=== PATIENT | male | born 1935 | race Caucasian/White ===

== ENCOUNTER 2017-09-28 13:46 | Inpatient (IN) | payer MEDICARE, BC ==
[~2017-09-28 13:46] MED LIST: ISOVUE-370 76%-LOCM 1 ML ONE
[2017-09-28 14:26] LABS: #Basophils 0.1 thou/uL (0.0-0.2); #Eosinphils 0.1 thou/uL (0.0-0.7); #Lymphocytes 1.1 thou/uL (1.20-3.40); #Monocytes 0.5 thou/uL (0.11-0.59); #Neutrophils 3.2 thou/uL (1.40-6.50); %Basophils 1.4 % (0.0-1.0); %Eosinophils 2.6 % (0.0-10.0); %Lymphocytes 22.4 % (21.0-51.0); %Monocytes 9.2 % (0.0-10.0); %Neutrophils 64.3 % (42.0-75.0); Hemoglobin 12.7 g/dL (14.0-18.0); Mean Corpuscular HGB CONC 34.7 g/dL (32.0-36.0); Mean Corpuscular Hemoglobin 35.5 pg (27.0-31.0); Mean Platelet Volume 6.7 fL (7.4-10.4); Platelet Count 262 thou/uL (130-400); RBC Distribution Width 11.2 % (11.5-14.5); Red Blood Cell (RBC) Count 3.59 mill/uL (4.70-6.10); White Blood Cell (WBC) Count 4.9 thou/uL (4.8-10.8)
--- NOTE | 2017-09-28 14:27 | RAD ---
CHEST ONE VIEW: History: Chest pain. Comparison: 09-29-09 FINDINGS: Cardiac silhouette is magnified by projection. Pulmonary vasculature is unremarkable. Mediastinum is midline. No confluent airspace consolidation or evidence of pneumothorax. IMPRESSION: No active cardiopulmonary abnormalities are demonstrate.d POS: [facility]
[2017-09-28 14:33] LABS: PTT 26.7 SEC (22.9-36.1); Prothrombin Time 13.6 SEC (12.0-14.7)
[2017-09-28 14:48] LABS: ALT (SGPT) 14 U/L (8-55); AST (SGOT) 25 U/L (5-34); Albumin 4.3 g/dL (3.4-4.8); Alkaline Phosphatase 51 U/L (40-150); Anion Gap 11 mmol/L (10-20); BUN (Urea Nitrogen) 18 mg/dL (8.4-25.7); CK (CPK) 134 U/L (30-200); Calc. Creatinine Clearance 0 mL/min (70-130); Calcium 9.5 mg/dL (7.8-10.44); Carbon Dioxide 27 mmol/L (23-31); Chloride 100 mmol/L (98-107); Estimated GFR-MDRD 63; Globulin 2.6 g/dL (2.4-3.5); Glucose 90 mg/dL (83-110); Potassium 4.4 mmol/L (3.5-5.1); Protein, Total 6.9 g/dL (5.8-8.1); Sodium 134 mmol/L (136-145)
[2017-09-28 14:52] LABS: CKMB 3.3 ng/mL (0-6.6); Troponin I Less than 0.010 ng/mL (< 0.028)
[2017-09-28] MEDS ORDERED: cloNIDine 0.1 MG TAB PO PRN (15:20)
[2017-09-28] MEDS ORDERED: Calcium Carbonate 500 MG ChewTAB PO PRN ×2 (15:20)
[2017-09-28] MEDS ORDERED: traMADol HCl 50 MG TAB PO PRN (15:20)
[2017-09-28] MEDS ORDERED: Diabetic Tussin 200 MG/10 ML UDCUP PO PRN (15:20)
[2017-09-28] MEDS ORDERED: Senokot 8.6 MG TAB PO PRN (15:20)
[2017-09-28] MEDS ORDERED: Nitroglycerin 0.4 MG TAB (25 Tab Bottle) SL PRN (15:20)
[2017-09-28] MEDS ORDERED: Ondansetron HCl/PF 4 MG/2 ML Vial IVP PRN ×2 (15:20)
[2017-09-28] MEDS ORDERED: Benzonatate 100 MG CAP PO PRN (15:20)
[2017-09-28] MEDS ORDERED: Bisacodyl 5 MG TAB PO PRN (15:20)
[2017-09-28] MEDS ORDERED: Loratadine 10 MG TAB PO PRN (15:20)
[2017-09-28] MEDS ORDERED: Mag-Al 1200 mg/1200 mg/30 ML UDCUP PO PRN ×2 (15:20)
[2017-09-28] MEDS ORDERED: hydrALAZINE 20 MG/ML VIAL SLOW IVP PRN (15:20)
[2017-09-28] MEDS ORDERED: Acetaminophen 325 MG TAB PO PRN ×2 (15:20)
[2017-09-28] MEDS ORDERED: Aspirin 325 MG TAB PO SCH (17:00)
[2017-09-28 17:30] VITALS: BMI 25.3
--- NOTE | 2017-09-28 17:30 | HP ---
DATE OF ADMISSION: 09/28/2017 PRIMARY CARE PHYSICIAN: Terry Rice M.D. CHIEF COMPLAINT: Dusky discoloration of the thumb and little finger of the right hand. HISTORY OF PRESENT ILLNESS: Mr. Long is a pleasant 82-year-old male with past medical history o f hypertension and liver hemangioma who presented to the emergency room with above-mentioned complain t at the request of his primary care physician. History is mainly obtained by the patient himself an d case has been discussed with admitting ER physician. Electronic medical records have been reviewed . Mr. Long reports that he woke up this morning and found his right thumb was purple, but the numb ness has resolved. He called his primary care physician and was told to come in to get a CT angio of his hand. In the Radiology Department, it was found out that the CT angio for the small vessel coul d not be on optimal test for it. He was being discharged, but at the request by his primary care antelmo flaherty, he is now being admitted for further workup for the same. He denies any recent illnesses. He has no history of any cardiac diseases. He has no history of ble eding or clotting disorders. He is not on any blood thinners. He has been fairly healthy other than this presenting symptom. Upon presentation to the ER, he was hemodynamically stable with blood pressure 140/85, pulse of 56. His initial workup included chest x-ray which was unremarkable. EKG, which showed some sinus bradyca rdia and right bundle branch block. His blood work was rather unremarkable. His right thumb was pur ple and cold to touch without any tenderness. Medial aspect of the fifth finger was also found to be purple and cold. There was no limitation in the range of motion or sensory loss. He is now being a dmitted for further evaluation and care. PAST MEDICAL HISTORY: Hypertension and liver hemangioma. PAST SURGICAL HISTORY: History of hernia repair. PSYCHIATRIC HISTORY: No anxiety, no depression. CURRENT MEDICATIONS: Lisinopril 5 mg daily, finasteride, Centrum multivitamin daily, and vitamin A d aily. ALLERGIES: None. SOCIAL HISTORY: He is a retired professor of [employer]. Lives with his family. Very active. No hi story of drug, tobacco or alcohol abuse. FAMILY HISTORY: His brother was found to have aneurysm last year and recently was diagnosed with mul tiple emboli as per the patient's daughter, but they are not sure about the diagnosis. REVIEW OF SYSTEMS: A 12-point review of systems was done, which is negative except for those mention ed in the history and physical. LABORATORY DATA AND IMAGING DATA: 1. CBC shows WBCs 12.7 and macrocytosis with normal platelet count and WBC count. His ESR is normal at 2, PT, PTT and INR are normal. 2. Serum chemistry shows sodium of 134, otherwise completely unremarkable. Cardiac enzymes are norm al. 3. Chest x-ray by my review has no evidence to suggest any pleural effusion, edema or infiltrate. N o cardiomegaly. 4. Twelve-lead EKG shows sinus bradycardia, otherwise unremarkable. PHYSICAL EXAMINATION: VITAL SIGNS: Upon presentation, blood pressure 140/85, pulse of 56, respirations 18, saturating 97% on room air and temperature 97.9. GENERAL: No acute distress, awake, alert, oriented x3. Family is at bedside. Patient appears well- nourished, well-built and stated age. HEENT: Mucous membrane is moist and pink. No telangiectasia is seen. Sclera is anicteric. No conj unctival injection noticed. Mucous membrane is moist and pink. No oropharyngeal exudate or erythema . Head is normocephalic, atraumatic. Pupils are equal, reactive to light and accommodation. NECK: Supple without any lymphadenopathy, JVD or bruit. CHEST: Clear to auscultation without any wheezing, rales or rhonchi. Rate and rhythm is regular wit hout any murmur, rubs or gallops. ABDOMEN: Soft, nontender, nondistended with positive bowel sounds. EXTREMITIES: Lower extremities are without any erythema, warmth or tenderness. His right hand as no young above in HPI, his thumb is purple and cold to touch and it is nontender, nonswollen. No joint sw elling or joint pain is noticed. He also has a small patch of purple discoloration in the medial asp ect of his fifth finger. Otherwise, range of motion and sensation is intact. Radial pulses felt eas yash on the right hand. NEUROLOGIC: Examination is nonfocal. SKIN: Free of any rashes or bruises. Feels warm and dry to touch. PSYCHIATRIC: Normal affect. IMPRESSION AND PLAN: 1. Right thumb and little finger ischemia. Cause of this is unknown at this time. Small vessel vas culitis versus septic emboli versus embolization from another source is suspected. He will be admitt ed to telemetry unit. No preceding symptoms and signs to suggest infective endocarditis; however, we will go ahead and get an echocardiogram for same. We will start workup for vasculitis with ABDI pane l and hepatitis C and B panel as well as complement levels and cryoglobulin levels. ESR is normal. We will check CRP as well. I have discussed the case with Dr. Turcios who has graciously seen the pinky ent for me. He is undergoing a CT angio of the chest and upper extremity to rule out subclavian prob lems resulting in the presenting symptoms. Other than that, the patient is hemodynamically stable. He will be started on full dose aspirin after discussion with Dr. Turcios for now. 2. History of hypertension. We will resume his lisinopril once the dose is confirmed. 3. History of benign prostatic hypertrophy. Resume finasteride once confirmed. 4. Deep venous thrombosis and gastrointestinal prophylaxis. DISPOSITION: Mr. Long is currently being admitted to the hospital for workup for digital ischem ia of unclear etiology. Estimated length of stay at this time is 2-3 midnights. Further management will depend upon his clinical course.
--- NOTE | 2017-09-28 18:28 | CT ---
CTA OF THE CHEST WITH CONTRAST: 09/28/17 COMPARISON: CT abdomen/pelvis 09/25/09. HISTORY: Blue fingers on the right hand. Evaluate the aorta and right subclavian artery for dissection or occl usion. TECHNIQUE: Multiple contiguous axial images were obtained in a CTA of the chest with contrast. 3D sagittal and c oronal MIP reformats were performed. FINDINGS: The heart is normal in size. There are calcifications in the coronary arteries. No hilar or mediastin al lymphadenopathy are seen. The aorta is normal in caliber without evidence of dissection or aneurysmal dilatation. The common ca rotid arteries and subclavian arteries are patent without significant atherosclerotic disease and wit hout significant narrowing on either side. The upper portion of the right arm was evaluated. The right subclavian artery, axillary artery, and b rachial artery are patent without significant atherosclerotic disease or dissection. The visualized v essels appear normal down to the level of the elbow. Degenerative changes are seen in the spine. No pulmonary nodules or infiltrates are seen in the lungs . No pneumothorax or pleural effusion are seen. There is a stable mass in the anterior aspect of the liver measuring 6.3 cm in size which demonstrate s peripheral puddling and likely represents a hemangioma. The chest wall soft tissues are unremarkabl e. IMPRESSION: 1. Normal aorta and right subclavian artery as well as normal vasculature in the upper portion o f the right arm. 2. No evidence of acute intrathoracic abnormality. 3. Hepatic hemangioma. POS: [facility]
[2017-09-28 19:11] LABS: CRP (Inflammatory) Less than 0.50 mg/dL (= or < 0.5)
[2017-09-28 19:29] LABS: Hep C IgG Ab Non-Reactive (NonReactive); Hep C Index 0.07 S/CO (0-0.79)
--- NOTE | 2017-09-28 20:22 | CON ---
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 He denied any pain. He was seen by Dr Alejandrina Rice and referred to the emergency room and during the course of the day, the numbness has resol tommy and he continues to have no pain. He was noted to have some purple discoloration of his thumb an d right little finger. PAST MEDICAL HISTORY: Includes hypertension as well as prostate cancer. His hypertension has been c ontrolled with lisinopril and his prostatic cancer has received no specific treatment and is followed by Urology. 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 Holly with a yearly March visit. He is on no medications for this problem. PAST SURGICAL HISTORY: Hemorrhoidectomy, lysis of abdominal adhesions causing a small-bowel obstruct ion, left inguinal hernia repair, he has had a remote tonsillectomy, he has had a remote orthopedic s urgery in 1992 and a negative colonoscopy. MEDICATIONS: Include lisinopril and finasteride. ALLERGIES: None. SMOKING HISTORY: Never. 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 He is and accompanied by and son. He lives locally. He remains active, exercising on a recumbent bike and rowing machine. He did use the treadmill until about 8 years ago when he fell off the treadmill. He was evaluated at that time for possible syncope with a negative workup and has been followed since that time for hypertension b hernan Peguero. REVIEW OF SYSTEMS: The patient has had no chest or back pain. He denies any significant dyspnea. H e has had no abdominal pain, nausea, vomiting. He denies any history of claudication. PHYSICAL EXAMINATION: GENERAL: He is an alert, cooperative, elderly gentleman, in no distress. VITAL SIGNS: Heart rate of 50 and occasional ectopic beat. He is in sinus rhythm. His blood pressu re is 130. NECK: No carotid bruits, no JVD. LUNGS: Clear to auscultation. CARDIAC: Without murmurs. Rhythm is slow and regular. ABDOMEN: Has a well-healed midline incision. He has no aneurysm. EXTREMITIES: He has palpable femoral and dorsalis pedis pulses bilaterally with no peripheral edema. Upper extremities: He has palpable brachial and radial pulses bilaterally with a good Doppler sign al in both radial arteries as well as ulnar arteries, although the ulnar artery Doppler signal is dim inished compared to the radial. He has a digital Doppler signals in his right thumb medial and later al as well as his right little finger. The skin over the pad of his right thumb is dark blue and he does have some purplish discoloration of his left little finger, although not at the distal most aspect, but slightly more proximally. He bui s no tenderness to palpation. Temperature cannot be accurately assessed. At this time, he may have had a small embolic event to his thumb and watch and wait approach is proba nita the only option as far as intervention. Cardiac echo was appropriate. We will do a CT angiogram of the subclavian artery and upper chest to look for embolic source and a cardiac echo has been orde red. I will add aspirin a day to his medical regimen.
[2017-09-28] MEDS: Famotidine 20 MG TAB PO SCH (20:37)
[2017-09-29 04:59] LABS: #Eosinphils 0.2 thou/uL (0.0-0.7); #Lymphocytes 1.1 thou/uL (1.20-3.40); #Monocytes 0.4 thou/uL (0.11-0.59); #Neutrophils 1.9 thou/uL (1.40-6.50); %Basophils 1.3 % (0.0-1.0); %Eosinophils 5.3 % (0.0-10.0); %Lymphocytes 29.8 % (21.0-51.0); %Monocytes 11.3 % (0.0-10.0); %Neutrophils 52.2 % (42.0-75.0); Mean Corpuscular HGB CONC 34.7 g/dL (32.0-36.0); Mean Corpuscular Hemoglobin 35.6 pg (27.0-31.0); Mean Platelet Volume 6.9 fL (7.4-10.4); Platelet Count 222 thou/uL (130-400); RBC Distribution Width 11.1 % (11.5-14.5); Red Blood Cell (RBC) Count 3.08 mill/uL (4.70-6.10); White Blood Cell (WBC) Count 3.7 thou/uL (4.8-10.8)
[2017-09-29 05:15] LABS: Anion Gap 10 mmol/L (10-20); BUN (Urea Nitrogen) 17 mg/dL (8.4-25.7); Calc. Creatinine Clearance 60 mL/min (70-130); Calcium 8.5 mg/dL (7.8-10.44); Carbon Dioxide 25 mmol/L (23-31); Chloride 101 mmol/L (98-107); Estimated GFR-MDRD 76; Glucose 79 mg/dL (83-110); Potassium 4.4 mmol/L (3.5-5.1); Sodium 132 mmol/L (136-145)
[2017-09-29] MEDS: Famotidine 20 MG TAB PO SCH ×2 (09:30→20:54)
[2017-09-29] MEDS: Lisinopril 5 MG TAB PO SCH (09:30)
[2017-09-29] MEDS: Finasteride 5 MG TAB PO SCH (09:30)
[2017-09-29] MEDS: Aspirin 325 mg Enteric Coated Tablet PO SCH (09:30)
[2017-09-29] MEDS: Enoxaparin Sodium 40 MG/0.4 ML SYRINGE SC SCH (09:30)
--- NOTE | 2017-09-29 13:57 | PDOC.PN ---
- Subjective Encounter Start Date: 09/29/17 Encounter Start Time: 13:55 Subjective: no new complaints. feels about the same. -: no pain in thumb.no fever/chills/CP/SOB - Objective MAR Reviewed: Yes Vital Signs & Weight: Vital Signs (12 hours) Temp Pulse Resp BP Pulse Ox 09/29/17 11:39 98.1 F 50 L 14 103/65 95 09/29/17 09:30 47 L 09/29/17 08:00 97 F L 47 L 16 132/64 97 09/29/17 03:50 97.6 F 66 19 120/59 L 96 Weight Weight 157 lb I&O: 09/28/17 09/29/17 09/30/17 06:59 06:59 06:59 Intake Total 240 Balance 240 Result Diagrams: 09/29/17 04:20 09/29/17 04:20 Additional Labs: Microbiology 09/28/17 15:53 Venous blood - Left Hand Blood Culture - Preliminary Specimen has been received and culture in progress. No Growth to date. 09/28/17 15:51 Venous blood - Right Arm Blood Culture - Preliminary Specimen has been received and culture in progress. No Growth to date. labs reviewed Radiology Reviewed by me: Yes (CTA-Small plaque in r subclavian) Phys Exam - Physical Examination Constitutional: NAD HEENT: PERRLA, moist MMs, sclera anicteric, oral pharynx no lesions Neck: no nodes, no JVD, supple, full ROM Respiratory: no wheezing, no rales, no rhonchi, clear to auscultation bilateral Cardiovascular: RRR, no significant murmur, no rub Gastrointestinal: soft, non-tender, no distention, positive bowel sounds Musculoskeletal: no edema, pulses present R thumb looks more dusky and swollen than yesterday.small spot on pinkie Neurological: non-focal, normal sensation, moves all 4 limbs Psychiatric: normal affect, A&O x 3 Skin: no rash Dx/Plan (1) Ischemia of digits of hand Code(s): I99.8 - OTHER DISORDER OF CIRCULATORY SYSTEM Status: Acute (2) HTN (hypertension) Code(s): I10 - ESSENTIAL (PRIMARY) HYPERTENSION Status: Chronic (3) BPH (benign prostatic hyperplasia) Code(s): N40.0 - BENIGN PROSTATIC HYPERPLASIA WITHOUT LOWER URINRY TRACT SYMP Status: Chronic - Plan DVT proph w/SCDs cont ASA.add statin. -: [facility] following.discussed w Dr. phillips -: vasculitis work up initiated-follow the results -: ECHO to R/O Infective endocarditis,though unlikley clinically -: HD stable.Monitor for worsening ischemia * . Review of Systems - Review of Systems Constitutional: negative: fever, chills, sweats, weakness, malaise, other ENT: negative: Ear Pain, Ear Discharge, Nose Pain, Nose Discharge, Nose Congestion, Mouth Pain, Mouth Swelling, Throat Pain, Throat Swelling, Other Respiratory: negative: Cough, Dry, Shortness of Breath, Hemoptysis, SOB with Excertion, Pleuritic Pain, Sputum, Wheezing Cardiovascular: negative: chest pain, palpitations, orthopnea, paroxysmal nocturnal dyspnea, edema, light headedness, other Gastrointestinal: negative: Nausea, Vomiting, Abdominal Pain, Diarrhea, Constipation, Melena, Hematochezia, Other Genitourinary: negative: Dysuria, Frequency, Incontinence, Hematuria, Retention , Other Musculoskeletal: negative: Neck Pain, Shoulder Pain, Arm Pain, Back Pain, Hand Pain, Leg Pain, Foot Pain, Other Skin: Other (thunm discoloration R hand) Neurological: negative: Weakness, Numbness, Incoordination, Change in Speech, Confusion, Seizures, Other - Medications/Allergies Allergies/Adverse Reactions: Allergies Allergy/AdvReac Type Severity Reaction Status Date / Time No Known Drug Allergies Allergy Verified 09/28/17 17:00 Medications: Current Medications Acetaminophen (Tylenol) 650 mg PO Q4H PRN PRN Reason: Headache/Fever or Pain Al Hydroxide/Mg Hydroxide (Maalox) 30 ml PO Q6H PRN PRN Reason: Heartburn or Indigestion Aspirin (Ecotrin) 325 mg PO DAILY ED Last Admin: 09/29/17 09:30 Dose: 325 mg Benzonatate (Tessalon) 100 mg PO Q4H PRN PRN Reason: Cough Bisacodyl (Dulcolax) 10 mg PO DAILYPRN PRN PRN Reason: Constipation Calcium Carbonate (Tums) 1,000 mg PO Q4H PRN PRN Reason: Heartburn or Indigestion Clonidine (Catapres) 0.1 mg PO Q4H PRN PRN Reason: Systolic BP > 160 Enoxaparin Sodium (Lovenox) 40 mg SC 09 [facility] Last Admin: 09/29/17 09:30 Dose: 40 mg Famotidine (Pepcid) 20 mg PO BID [facility] Last Admin: 09/29/17 09:30 Dose: 20 mg Finasteride (Proscar) 5 mg PO DAILY [facility] Last Admin: 09/29/17 09:30 Dose: 5 mg Guaifenesin (Robitussin Sf) 200 mg PO Q4H PRN PRN Reason: Cough Hydralazine HCl (Apresoline) 10 mg SLOW IVP Q4H PRN PRN Reason: Systolic BP > 170 Lisinopril (Zestril) 5 mg PO DAILY [facility] Last Admin: 09/29/17 09:30 Dose: 5 mg Loratadine (Claritin) 10 mg PO DAILYPRN PRN PRN Reason: Sinus Symptoms Nitroglycerin (Nitrostat) 0.4 mg SL Q5MIN PRN PRN Reason: Chest Pain Ondansetron HCl (Zofran) 4 mg IVP Q6H PRN PRN Reason: Nausea/Vomiting Senna (Senokot) 2 tab PO HSPRN PRN PRN Reason: Constipation Tramadol HCl (Ultram) 50 mg PO Q4H PRN PRN Reason: Moderate Pain (4-6)
[2017-09-29 18:16] LABS: ANA Symphony (Qualitative) Negative (Negative); dsDNA IgG Antibody 2.6 IU/mL (<10 Negative)
[2017-09-29] MEDS ORDERED: Atorvastatin Calcium 20 MG TAB PO SCH (21:00)
[2017-09-30] MEDS: Lisinopril 5 MG TAB PO SCH (08:32)
[2017-09-30] MEDS: Famotidine 20 MG TAB PO SCH (08:32)
[2017-09-30] MEDS: Aspirin 325 mg Enteric Coated Tablet PO SCH (08:32)
[2017-09-30] MEDS: Finasteride 5 MG TAB PO SCH (08:32)
[2017-09-30] MEDS: Enoxaparin Sodium 40 MG/0.4 ML SYRINGE SC SCH (08:32)
[2017-09-30 10:57] VITALS: BP 119/69; TEMP 98
--- NOTE | 2017-09-30 12:02 | PDOC.PN ---
- Subjective Encounter Start Date: 09/30/17 Encounter Start Time: 10:00 Subjective: is able to move his thumb and all fingers on right hand -: still some purplish discol over thumb -: family at bedside - Objective MAR Reviewed: Yes Vital Signs & Weight: Vital Signs (12 hours) Temp Pulse Resp BP BP BP Pulse Ox 09/30/17 10:56 98 F 50 L 16 119/69 96 09/30/17 08:32 52 L 119/70 09/30/17 07:10 97.7 F 52 L 16 119/70 97 09/30/17 03:06 97.4 F L 50 L 14 134/65 97 Weight Weight 157 lb I&O: 09/29/17 09/30/17 10/01/17 06:59 06:59 06:59 Intake Total 240 1200 Output Total 1070 Balance 240 130 Result Diagrams: 09/29/17 04:20 09/29/17 04:20 Phys Exam - Physical Examination HEENT: PERRLA, moist MMs Neck: no JVD, supple Respiratory: no wheezing, no rales Cardiovascular: RRR, no significant murmur Gastrointestinal: soft, non-tender, positive bowel sounds Musculoskeletal: pulses present radial and ulnar pulses over right hand are felt Neurological: non-focal, moves all 4 limbs Dx/Plan (1) Ischemia of digits of hand Code(s): I99.8 - OTHER DISORDER OF CIRCULATORY SYSTEM Status: Acute (2) BPH (benign prostatic hyperplasia) Code(s): N40.0 - BENIGN PROSTATIC HYPERPLASIA WITHOUT LOWER URINRY TRACT SYMP Status: Chronic Qualifiers: Lower urinary tract symptom presence: unspecified whether lower urinary tract symptoms present Qualified Code(s): N40.0 - Benign prostatic hyperplasia without lower urinary tract symptoms (3) HTN (hypertension) Code(s): I10 - ESSENTIAL (PRIMARY) HYPERTENSION Status: Chronic Qualifiers: Hypertension type: essential hypertension Qualified Code(s): I10 - Essential (primary) hypertension (4) Osteoarthritis Code(s): M19.90 - UNSPECIFIED OSTEOARTHRITIS, UNSPECIFIED SITE Status: Chronic Qualifiers: Osteoarthritis location: multiple joints Osteoarthritis type: primary Qualified Code(s): M15.0 - Primary generalized (osteo)arthritis - Plan hemostable -: d/w , stable for discharge -: evangelina is -ve, cryoglobulins are pending -: dc pt home * .
--- NOTE | 2017-09-30 23:17 | DIS ---
DATE OF ADMISSION: 09/28/2017 DATE OF DISCHARGE: 09/30/2017 DISCHARGE DISPOSITION: To home. PRIMARY DISCHARGE DIAGNOSES: Right thumb and right little finger discoloration with numbness, resolv ing. SECONDARY DISCHARGE DIAGNOSES: Hypertension, osteoarthritis, benign prostatic hypertrophy. PROCEDURES DONE DURING HOSPITALIZATION: Patient had CT angio of the chest done, which showed normal aorta and right subclavian artery as well as normal vasculature in the upper portion of the right arm . No evidence of acute intrathoracic abnormality. Hepatic hemangioma was seen. Echo with 2D Dopple r showed an EF of 55%-60%, no obvious vegetations were noted on the cardiac valves. H and H 11 and 3 1, platelet count 222. Sed rate 2, INR 1.0. One set of cardiac enzymes were negative. CRP 0.5, BUN 17, creatinine 0.9. ABDI screen was negative. Double-stranded DNA IgG antibody was 2.6. C3 77 C4 1 9. Hep C antibody was nonreactive. Blood cultures x2 no growth. DISCHARGE MEDICATIONS: Aspirin 81 mg p.o. daily, Lipitor 20 mg p.o. at bedtime, Proscar 5 mg p.o. da yash, lisinopril 5 mg p.o. daily. DISCHARGE PLAN: Patient to follow up with primary care physician in 1 week. BRIEF COURSE DURING HOSPITALIZATION: Patient initially was sent from primary care physician's office due to discoloration of his right thumb and little finger of the right hand with numbness. He has h ad a CT angio of the chest done, which did not reveal any obvious major vessel deformities. He was c losely monitored on telemetry. His numbness is resolved. His little finger discoloration is resolve d, but still has his right thumb purple discoloration, likely an embolic phenomenon involving the mid dle portion of his thumb. He has not had any distal digit gangrene or ulcerations. He was evaluated by Dr. Turcios for Vascular Surgery as well. He has remained hemodynamically stable. He is able to m ove all fingers of his right hand. He is hemodynamically stable and will be shortly discharged home. His echo has not revealed any thrombus. Please note this is a transthoracic echo. Cryoglobulin le vels are pending and needs to be followed up by primary care physician. Please see a [id number] do cumentation on [facility] for the day of discharge.
[2017-10-01 13:15] LABS: Hep B Surface AG-Rflx Sendout Negative (Negative); Hepatitis B Core IgM AB Negative (Negative); Hepatitis B Core Total Negative (Negative); Hepatitis B Surface AB-Sendout Non Reactive (.)
--- NOTE | 2017-10-02 11:36 | CT ---
CTA OF THE CHEST WITH CONTRAST: CT UPPER EXT RT W CON: 09/28/17 COMPARISON: CT abdomen/pelvis 09/25/09. HISTORY: Blue fingers on the right hand. Evaluate the aorta and right subclavian artery for dissection or occl usion. TECHNIQUE: Multiple contiguous axial images were obtained in a CTA of the chest with contrast. 3D sagittal and c oronal MIP reformats were performed. FINDINGS: The heart is normal in size. There are calcifications in the coronary arteries. No hilar or mediastin al lymphadenopathy are seen. The aorta is normal in caliber without evidence of dissection or aneurysmal dilatation. The common ca rotid arteries and subclavian arteries are patent without significant atherosclerotic disease and wit hout significant narrowing on either side. The upper portion of the right arm was evaluated. The right subclavian artery, axillary artery, and b rachial artery are patent without significant atherosclerotic disease or dissection. The visualized v essels appear normal down to the level of the elbow. Degenerative changes are seen in the spine. No pulmonary nodules or infiltrates are seen in the lungs . No pneumothorax or pleural effusion are seen. There is a stable mass in the anterior aspect of the liver measuring 6.3 cm in size which demonstrate s peripheral puddling and likely represents a hemangioma. The chest wall soft tissues are unremarkabl e. IMPRESSION: 1. Normal aorta and right subclavian artery as well as normal vasculature in the upper portion o f the right arm. 2. No evidence of acute intrathoracic abnormality. Hepatic hemangioma.
== END 2017-09-30 11:09 | disposition home or self-care (01) | DRG 303 ==
LOC: ERS 13:46 → 2NO 16:44
PROVIDERS: ADMIT Internal Medicine; ATTEND Internal Medicine
DX: I99.8 Other disorder of circulatory system (principal); R20.0 Anesthesia of skin; I10 Essential (primary) hypertension; N40.0 Benign prostatic hyperplasia without lower urinary tract symptoms; D18.09 Hemangioma of other sites; M19.90 Unspecified osteoarthritis, unspecified site
CPT/HCPCS: 36415; 71045; 71275; 80048; 80053; 82550; 82553; 82595; 84484; 85025; 85610; 85652; 85730; 86038; 86140; 86160; 86225; 86704; 86705; 86706; 86707; 86803; 87040; 87340; 87350; 93005; 93306; J1650

== ENCOUNTER 2019-09-23 13:33 | Outpatient (CLI) | payer MEDICARE, BC ==
--- NOTE | 2019-09-23 16:16 | MRI ---
MR OF THE PELVIS WITH AND WITHOUT CONTRAST INDICATION: Prostate Cancer COMPARISON: None TECHNIQUE: Multiplanar, multisequence MR images were obtained of the pelvis with and without IV contr ast. 20 cc of MultiHance was utilized for the examination. The examination was reviewed on a separate [employer]ellar 3-D workstation for multiplanar metric evaluation. FINDINGS: PSA on 09/01/2019: 23.29 Prostate size: The prostate measured 4.5 x 4.2 x 4.9cm. 42.92 cc. Peripheral zone: No area of restricted diffusion is seen within the peripheral zone. Central zone: There is a lenticular shaped homogeneously T2 hypointense, ADC hypointense, abnormal dy namic contrast enhancing lesion within the anterior right transition zone at the right mid gland and right base measuring 1.9 x 1.4 cm suspicious for clinically significant malignancy. There are mul tiple scattered BPH nodule seen within the transitional zone. Neural vasculature: No evidence of neurovascular invasion Regional lymphadenopathy: None Dynamic contrast enhancement: There is abnormal dynamic contrast enhancement involving the lenticular shaped lesion within the anterior transition zone of the right mid and right prostatic base as detailed above. Osseous structures: No suspicious osseous lesion is identified. Additional findings: Colonic diverticulosis. Wall thickening involving the bladder likely reflective of chronic bladder outlet obstruction. Somewhat accentuated wall thickening involving the rectum likely related to underdistention.. IMPRESSION: 1. PIRADS 5- Very High (clinically significant cancer is highly likely to be present.) 2. There is a lenticular-shaped, homogeneously T2 hyperintense lesion within the anterior transition zone of the right mid gland and right prosthetic base measuring 1.9 x 1.4 cm demonstrating abnormal dynamic contrast enhancement. This lesion is suspicious for a clinically significant malignancy. This lesion is somewhat anterior in position and conceivably could be out of reach for the conventional prostatic biopsy samples. Recommend correlation with prior biopsy. If clinically indicated, Uronav fu shayy biopsy may be considered to resample this region.
== END 2019-09-23 13:34 | disposition home or self-care (01) ==
LOC: TBSIIMAG 13:33
PROVIDERS: ATTEND Urology
DX: C61 Malignant neoplasm of prostate (principal); N42.89 Other specified disorders of prostate
CPT/HCPCS: 72197; 82565

== ENCOUNTER 2020-06-09 12:28 | Outpatient (CLI) | payer MEDICARE, BC | END 2020-06-09 12:29 | disposition home or self-care (01) | LOC: CT 12:28 | PROVIDERS: ATTEND Internal Medicine Medical Oncology | DX: C90.00 Multiple myeloma not having achieved remission (principal); D47.2 Monoclonal gammopathy; M47.812 Spondylosis without myelopathy or radiculopathy, cervical region; M51.36 Other intervertebral disc degeneration, lumbar region; M51.37 Other intervertebral disc degeneration, lumbosacral region; I67.82 Cerebral ischemia; M41.9 Scoliosis, unspecified | CPT/HCPCS: 70450; 72125; 72128; 72131; 72192 ==

== ENCOUNTER 2022-05-27 11:05 | Inpatient (IN) | payer MEDICARE, BC ==
[2022-05-27 13:14] VITALS: BMI 24.5
[2022-05-27] MEDS: Lisinopril 5 MG TAB PO SCH (21:05)
[2022-05-27] MEDS: Sertraline 25 MG TAB PO SCH (21:05)
[2022-05-27] MEDS: Atorvastatin Calcium 20 MG TAB PO SCH (21:05)
[2022-05-28] MEDS ORDERED: Ondansetron ODT 4 MG TAB PO PRN (02:26)
[2022-05-28] MEDS ORDERED: Acetaminophen 500 MG TAB PO PRN (02:26)
[2022-05-28] MEDS ORDERED: Ondansetron PF 4 MG/2 ML Vial IVP PRN (02:26)
[2022-05-28] MEDS: Multivit, Therapeutic 1 TAB PO SCH (09:07)
[2022-05-28] MEDS: Aspirin Chewable 81 MG TAB PO SCH (09:08)
[2022-05-28] MEDS: Cholecalciferol 1,000 UNITS (25 MCG) TAB PO SCH (09:08)
[2022-05-28 11:43] LABS: Hemoglobin 11.5 g/dL (14.0-18.0); Mean Corpuscular HGB CONC 33.6 g/dL (32.0-36.0); Mean Corpuscular Hemoglobin 36.6 pg (27.0-31.0); Mean Platelet Volume 7.6 fL (7.4-10.4); Platelet Count 211 10x3/uL (130-400); RBC Distribution Width 11.7 % (11.5-14.5); Red Blood Cell (RBC) Count 3.15 mill/uL (4.70-6.10); White Blood Cell (WBC) Count 3.3 10x3/uL (4.8-10.8)
[2022-05-28 11:59] LABS: Anion Gap 11 mmol/L (10-20); BUN (Urea Nitrogen) 14 mg/dL (8.4-25.7); Calc. Creatinine Clearance 58 mL/min (70-130); Calcium 8.9 mg/dL (7.8-10.44); Carbon Dioxide 25 mmol/L (23-31); Chloride 105 mmol/L (98-107); Estimated GFR 83; Glucose 86 mg/dL (83-110); Potassium 4.4 mmol/L (3.5-5.1); Sodium 137 mmol/L (136-145)
[2022-05-28 12:07] LABS: #Eosinphils 0.2 thou/uL (0.0-0.7); #Lymphocytes 0.4 thou/uL (1.20-3.40); #Monocytes 0.4 thou/uL (0.11-0.59); #Neutrophils 2.3 thou/uL (1.40-6.50); %Basophils 0.7 % (0.0-1.0); %Eosinophils 5.6 % (0.0-10.0); %Lymphocytes 12.7 % (21.0-51.0); %Monocytes 10.4 % (0.0-10.0); %Neutrophils 70.6 % (42.0-75.0); MDiff Complete? YES; Macrocytosis SLIGHT = 6-15 cells (100X) (0-5/hpf); Platelet Morphology Comment Appears Adequate
[2022-05-28] MEDS: Lisinopril 5 MG TAB PO SCH (21:21)
[2022-05-28] MEDS: Atorvastatin Calcium 20 MG TAB PO SCH (21:21)
[2022-05-28] MEDS: Sertraline 25 MG TAB PO SCH (21:21)
[2022-05-29] MEDS ORDERED: Sodium Chloride 0.9% 500 ML IV SCH (05:15)
[2022-05-29] MEDS: Sodium Chloride 0.9% 1,000 ML IV SCH ×2 (05:26→16:27)
[2022-05-29] MEDS: Cholecalciferol 1,000 UNITS (25 MCG) TAB PO SCH (08:32)
[2022-05-29] MEDS: Aspirin Chewable 81 MG TAB PO SCH (08:32)
[2022-05-29] MEDS: Multivit, Therapeutic 1 TAB PO SCH (08:32)
[2022-05-29] MEDS ORDERED: Cosyntropin 250 MCG VIAL SLOW IVP SCH (14:45)
[2022-05-29 19:47] LABS: Bacteria/HPF None Seen HPF (None Seen); Bilirubin Negative (Negative); Blood, Urine Negative (Negative); Clarity Clear (Clear); Glucose, Urine (Dipstick) Normal (Negative); Ketone, Urine Negative (Negative); Leukocyte Negative Leu/uL (Negative); Nitrite Negative (Negative); Protein, Urine (Dipstick) Negative (Neg-Trace); RBC/HPF 0-3 HPF (0-3); Specific Gravity, Urine 1.016 (1.002-1.036); Squamous Epithelial None Seen HPF (0-3); Urobilinogen Normal mg/dL (Less than 2); WBC/HPF 0-3 HPF (0-3)
[2022-05-29] MEDS: Atorvastatin Calcium 10 MG TAB PO SCH (20:14)
[2022-05-29] MEDS: Sertraline 25 MG TAB PO SCH (20:15)
[2022-05-30 01:27] LABS: Hemoglobin 10.4 g/dL (14.0-18.0)
[2022-05-30 01:31] LABS: Bacteria/HPF None Seen HPF (None Seen); Bilirubin Negative (Negative); Blood, Urine 3+ (Negative); CAUTI Indications for Culture Acute Hematuria; Clarity Turbid (Clear); Glucose, Urine (Dipstick) Normal (Negative); Ketone, Urine Negative (Negative); Leukocyte 75 Leu/uL (Negative); Nitrite Negative (Negative); Protein, Urine (Dipstick) 20 mg/dL (Neg-Trace); RBC/HPF Greater than 50 HPF (0-3); Specific Gravity, Urine 1.012 (1.002-1.036); Squamous Epithelial None Seen HPF (0-3); Urobilinogen Normal mg/dL (Less than 2); WBC/HPF Greater than 50 HPF (0-3); pH, Urine 5.5 (5.0-9.0)
[2022-05-30 01:33] LABS: Urine Culture Reflex Yes Yes
[2022-05-30 05:10] LABS: #Eosinphils 0.2 thou/uL (0.0-0.7); #Lymphocytes 0.4 thou/uL (1.20-3.40); #Monocytes 0.4 thou/uL (0.11-0.59); %Lymphocytes 7.3 % (21.0-51.0); %Monocytes 6.8 % (0.0-10.0); %Neutrophils 82.9 % (42.0-75.0); Hemoglobin 10.5 g/dL (14.0-18.0); Mean Corpuscular HGB CONC 33.7 g/dL (32.0-36.0); Mean Corpuscular Hemoglobin 36.7 pg (27.0-31.0); Mean Platelet Volume 8.2 fL (7.4-10.4); Platelet Count 186 10x3/uL (130-400); RBC Distribution Width 11.7 % (11.5-14.5); Red Blood Cell (RBC) Count 2.86 mill/uL (4.70-6.10)
[2022-05-30 05:36] LABS: Anion Gap 11 mmol/L (10-20); BUN (Urea Nitrogen) 21 mg/dL (8.4-25.7); Calc. Creatinine Clearance 52 mL/min (70-130); Calcium 8.2 mg/dL (7.8-10.44); Carbon Dioxide 21 mmol/L (23-31); Chloride 107 mmol/L (98-107); Estimated GFR 76; Glucose 89 mg/dL (83-110); Sodium 135 mmol/L (136-145)
[2022-05-30] MEDS: Cholecalciferol 1,000 UNITS (25 MCG) TAB PO SCH (09:02)
[2022-05-30] MEDS: Multivit, Therapeutic 1 TAB PO SCH (09:02)
[2022-05-30] MEDS: Fludrocortisone Acetate 0.1 MG TAB PO SCH (09:02)
[2022-05-30] MEDS: Aspirin Chewable 81 MG TAB PO SCH (09:02)
[2022-05-30] MEDS ORDERED: Cosyntropin 250 MCG VIAL SLOW IVP SCH (09:45)
[2022-05-30] MEDS: Sertraline 25 MG TAB PO SCH (20:56)
[2022-05-30] MEDS: Atorvastatin Calcium 10 MG TAB PO SCH (20:56)
[2022-05-31 08:21] VITALS: TEMP 98
[2022-05-31] MEDS: Aspirin Chewable 81 MG TAB PO SCH (08:22)
[2022-05-31] MEDS: Multivit, Therapeutic 1 TAB PO SCH (08:22)
[2022-05-31] MEDS: Fludrocortisone Acetate 0.1 MG TAB PO SCH (08:23)
[2022-05-31] MEDS: Cholecalciferol 1,000 UNITS (25 MCG) TAB PO SCH (08:23)
[2022-05-31 10:51] LABS: Anion Gap 10 mmol/L (10-20); BUN (Urea Nitrogen) 18 mg/dL (8.4-25.7); Calc. Creatinine Clearance 57 mL/min (70-130); Calcium 8.6 mg/dL (7.8-10.44); Carbon Dioxide 24 mmol/L (23-31); Chloride 104 mmol/L (98-107); Estimated GFR 83; Glucose 91 mg/dL (83-110); Potassium 3.4 mmol/L (3.5-5.1); Sodium 135 mmol/L (136-145)
[2022-05-31 10:59] LABS: #Eosinphils 0.1 thou/uL (0.0-0.7); #Lymphocytes 0.7 thou/uL (1.20-3.40); #Monocytes 0.7 thou/uL (0.11-0.59); #Neutrophils 5.7 thou/uL (1.40-6.50); %Basophils 0.3 % (0.0-1.0); %Eosinophils 1.7 % (0.0-10.0); %Lymphocytes 9.1 % (21.0-51.0); %Monocytes 9.5 % (0.0-10.0); %Neutrophils 79.4 % (42.0-75.0); Hemoglobin 10.7 g/dL (14.0-18.0); Mean Corpuscular Hemoglobin 36.7 pg (27.0-31.0); Mean Platelet Volume 8.2 fL (7.4-10.4); Platelet Count 193 10x3/uL (130-400); RBC Distribution Width 11.5 % (11.5-14.5); Red Blood Cell (RBC) Count 2.93 mill/uL (4.70-6.10); White Blood Cell (WBC) Count 7.2 10x3/uL (4.8-10.8)
[2022-05-31] MEDS ORDERED: Iopamidol-370 76% 500 ML 1 ML ONE (12:00)
[2022-05-31 12:14] VITALS: BP 139/71
== END 2022-05-31 15:21 | disposition home health service (06) | DRG 312 ==
LOC: 2NO 11:05 → OBSVTOIN 05-29 07:40
PROVIDERS: ADMIT Internal Medicine; ATTEND Internal Medicine
DX: I95.2 Hypotension due to drugs (principal); I10 Essential (primary) hypertension; M19.90 Unspecified osteoarthritis, unspecified site; N40.0 Benign prostatic hyperplasia without lower urinary tract symptoms; R00.1 Bradycardia, unspecified; E03.9 Hypothyroidism, unspecified; D47.2 Monoclonal gammopathy; F03.90 Unspecified dementia, unspecified severity, without behavioral disturbance, psychotic disturbance, mood disturbance, and anxiety; R31.0 Gross hematuria; Z20.822 Contact with and (suspected) exposure to COVID-19; T44.6X5A Adverse effect of alpha-adrenoreceptor antagonists, initial encounter; Z79.82 Long term (current) use of aspirin; Z79.899 Other long term (current) drug therapy; Z85.46 Personal history of malignant neoplasm of prostate; Z98.890 Other specified postprocedural states
CPT/HCPCS: 36415; 36416; 70551; 74178; 80048; 80053; 80400; 81001; 84484; 85025; 87086; 93005; 93010; 93306; G0378; J0834; J7030; J7050; Q9967; U0003; U0005

== ENCOUNTER 2022-06-22 15:27 | Inpatient (IN) | payer MEDICARE, BC ==
[2022-06-22] MEDS ORDERED: Acetaminophen 500 MG TAB ONE (15:52)
[2022-06-22 16:10] LABS: #Lymphocytes 0.2 thou/uL (1.20-3.40); #Monocytes 0.2 thou/uL (0.11-0.59); #Neutrophils 1.8 thou/uL (1.40-6.50); %Basophils 0.5 % (0.0-1.0); %Lymphocytes 8.2 % (21.0-51.0); %Monocytes 8.5 % (0.0-10.0); %Neutrophils 82.9 % (42.0-75.0); Hemoglobin 10.7 g/dL (14.0-18.0); Mean Corpuscular HGB CONC 33.3 g/dL (32.0-36.0); Mean Corpuscular Hemoglobin 35.5 pg (27.0-31.0); Platelet Count 155 10x3/uL (130-400); RBC Distribution Width 11.9 % (11.5-14.5); Red Blood Cell (RBC) Count 3.02 mill/uL (4.70-6.10); White Blood Cell (WBC) Count 2.1 10x3/uL (4.8-10.8)
[2022-06-22 16:29] LABS: ALT (SGPT) 18 U/L (8-55); AST (SGOT) 56 U/L (5-34); Albumin 3.3 g/dL (3.4-4.8); Alkaline Phosphatase 53 U/L (40-110); Anion Gap 10 mmol/L (10-20); BUN (Urea Nitrogen) 26 mg/dL (8.4-25.7); Bilirubin, Total 0.8 mg/dL (0.2-1.2); Calc. Creatinine Clearance 0 mL/min (70-130); Calcium 8.8 mg/dL (7.8-10.44); Carbon Dioxide 23 mmol/L (23-31); Chloride 101 mmol/L (98-107); Estimated GFR 76; Globulin 2.7 g/dL (2.4-3.5); Glucose 116 mg/dL (83-110); Potassium 3.6 mmol/L (3.5-5.1); Sodium 130 mmol/L (136-145)
[2022-06-22] MEDS ORDERED: cefTRIAXone (ROCEPHIN) 2 GM VIAL ONE (16:35)
[2022-06-22] MEDS ORDERED: Azithromycin 500 MG VIAL ONE (16:37)
[2022-06-22] MEDS ORDERED: Dexamethasone 4 mg/ml Vial ONE (17:28)
[2022-06-22] MEDS ORDERED: REMDESIVIR 200 MG in Sodium Chloride 0.9% 250 ML 210 ML IV SCH (18:15)
[2022-06-22 20:28] LABS: Actual Bicarbonate (HCO3v) 24 mEq/L (22-28); Base Excess -0.3 mEq/L (-2.0 to +3.0); Calcium, Ionized (venous) 1.13 mmol/L (1.16-1.32); Chloride (VBG) 101 mmol/L (98-106); Hemoglobin (Hb) 11.6 g/dL (12.6-17.4); Potassium (VBG) 3.92 mmol/L (3.70-5.30); Sodium 132.4 mmol/L (133-146)
[2022-06-22] MEDS ORDERED: GUAIFENESIN SF SOLN 200 MG/10 ML UDCUP PO PRN (20:50)
[2022-06-22] MEDS ORDERED: Acetaminophen 325 MG TAB PO PRN (20:50)
[2022-06-22] MEDS ORDERED: Ondansetron ODT 4 MG TAB PO PRN (20:50)
[2022-06-22] MEDS ORDERED: Acetaminophen 650 MG Suppository PR PRN (20:50)
[2022-06-22] MEDS ORDERED: Ipratropium/Albuterol 3 ML NEB NEB PRN (20:50)
[2022-06-22] MEDS ORDERED: Ondansetron PF 4 MG/2 ML Vial IVP PRN (20:50)
[2022-06-22] MEDS: Scopolamine 1.5 mg/72 hour Patch TD SCH (21:59)
[2022-06-22] MEDS: metroNIDAZOLE 500 MG in Premix Bag 1 BAG IVPB SCH (21:59)
[2022-06-22 22:23] VITALS: BMI 25.7
[2022-06-23] MEDS ORDERED: Cepastat Lozenges 1 LOZ PO PRN (03:21)
[2022-06-23] MEDS ORDERED: Phenol 118 ML BOT PO PRN (03:35)
[2022-06-23 04:49] LABS: #Lymphocytes 0.3 thou/uL (1.20-3.40); #Monocytes 0.3 thou/uL (0.11-0.59); #Neutrophils 2.9 thou/uL (1.40-6.50); %Lymphocytes 8.5 % (21.0-51.0); %Monocytes 9.4 % (0.0-10.0); Hemoglobin 11.1 g/dL (14.0-18.0); Mean Corpuscular HGB CONC 33.9 g/dL (32.0-36.0); Mean Corpuscular Hemoglobin 36.9 pg (27.0-31.0); Mean Platelet Volume 8.2 fL (7.4-10.4); Platelet Count 140 10x3/uL (130-400); Red Blood Cell (RBC) Count 3.01 mill/uL (4.70-6.10); White Blood Cell (WBC) Count 3.6 10x3/uL (4.8-10.8)
[2022-06-23 05:12] LABS: Anion Gap 12 mmol/L (10-20); BUN (Urea Nitrogen) 22 mg/dL (8.4-25.7); Calc. Creatinine Clearance 64 mL/min (70-130); Calcium 8.5 mg/dL (7.8-10.44); Carbon Dioxide 21 mmol/L (23-31); Chloride 103 mmol/L (98-107); Estimated GFR 84; Glucose 140 mg/dL (83-110); Magnesium 1.8 mg/dL (1.6-2.6); Potassium 3.9 mmol/L (3.5-5.1); Sodium 132 mmol/L (136-145)
[2022-06-23] MEDS: metroNIDAZOLE 500 MG in Premix Bag 1 BAG IVPB SCH ×3 (05:22→21:22)
[2022-06-23] MEDS: Dexamethasone 4 mg/ml Vial SLOW IVP SCH (10:38)
[2022-06-23] MEDS: REMDESIVIR 100 MG in Sodium Chloride 0.9% 250 ML 230 ML IV SCH (10:38)
[2022-06-23] MEDS ORDERED: Guaifenesin DM 100-10/5 ML UDCUP PO PRN (16:32)
[2022-06-23] MEDS: Sodium Chloride 0.9% 1,000 ML IV SCH (17:09)
[2022-06-23] MEDS: cefTRIAXone\\ROCEPHIN 1 GM in Sodium Chloride 0.9% 100 ML IVPB SCH (17:10)
[2022-06-23] MEDS: Azithromycin 500 MG in Sodium Chloride 0.9% 250 ML 250 ML IVPB SCH (18:38)
[2022-06-24] MEDS: Diclofenac 1% 100 GM GEL TP SCH ×5 (02:59→23:07)
[2022-06-24] MEDS: metroNIDAZOLE 500 MG in Premix Bag 1 BAG IVPB SCH ×3 (05:03→20:59)
[2022-06-24 07:52] LABS: Hemoglobin 10.6 g/dL (14.0-18.0); Mean Corpuscular HGB CONC 33.6 g/dL (32.0-36.0); Mean Corpuscular Hemoglobin 35.9 pg (27.0-31.0); Mean Platelet Volume 8.4 fL (7.4-10.4); Platelet Count 151 10x3/uL (130-400); RBC Distribution Width 11.9 % (11.5-14.5); Red Blood Cell (RBC) Count 2.94 mill/uL (4.70-6.10); White Blood Cell (WBC) Count 4.5 10x3/uL (4.8-10.8)
[2022-06-24 08:04] LABS: Anion Gap 11 mmol/L (10-20); BUN (Urea Nitrogen) 27 mg/dL (8.4-25.7); Calc. Creatinine Clearance 68 mL/min (70-130); Calcium 7.8 mg/dL (7.8-10.44); Carbon Dioxide 23 mmol/L (23-31); Chloride 104 mmol/L (98-107); Estimated GFR 85; Glucose 128 mg/dL (83-110); Potassium 3.8 mmol/L (3.5-5.1); Sodium 134 mmol/L (136-145)
[2022-06-24 09:30] LABS: Band 2 % (5-11); Burr Cells SLIGHT = 2-5 cells (100X) (0-1/hpf); Lymphocytes 8 % (21-51); MDiff Complete? YES; Macrocytosis SLIGHT = 6-15 cells (100X) (0-5/hpf); Monocytes 12 % (0-10); Neutrophil 78 % (42-75); Platelet Morphology Comment Appears Adequate
[2022-06-24] MEDS: REMDESIVIR 100 MG in Sodium Chloride 0.9% 250 ML 230 ML IV SCH (09:32)
[2022-06-24] MEDS: Dexamethasone 4 mg/ml Vial SLOW IVP SCH (09:32)
[2022-06-24] MEDS: Sodium Chloride 0.9% 1,000 ML IV SCH ×2 (10:00→23:07)
[2022-06-24] MEDS ORDERED: Haloperidol Lactate 5 MG/ML VIAL IM SCH (12:15)
[2022-06-24] MEDS ORDERED: QUEtiapine 25 MG TAB PO SCH ×2 (12:15→21:00)
[2022-06-24] MEDS: cefTRIAXone\\ROCEPHIN 1 GM in Sodium Chloride 0.9% 100 ML IVPB SCH (16:43)
[2022-06-24] MEDS: Azithromycin 500 MG in Sodium Chloride 0.9% 250 ML 250 ML IVPB SCH (16:44)
[2022-06-24] MEDS: Atorvastatin Calcium 10 MG TAB PO SCH (20:59)
[2022-06-25] MEDS: metroNIDAZOLE 500 MG in Premix Bag 1 BAG IVPB SCH (05:11)
[2022-06-25] MEDS: REMDESIVIR 100 MG in Sodium Chloride 0.9% 250 ML 230 ML IV SCH (09:19)
[2022-06-25] MEDS: Dexamethasone 4 mg/ml Vial SLOW IVP SCH (09:20)
[2022-06-25] MEDS: Fludrocortisone Acetate 0.1 MG TAB PO SCH (09:20)
[2022-06-25] MEDS: Cholecalciferol 1,000 UNITS (25 MCG) TAB PO SCH (09:20)
[2022-06-25] MEDS: Multivit, Therapeutic 1 TAB PO SCH (09:21)
[2022-06-25] MEDS: Diclofenac 1% 100 GM GEL TP SCH ×4 (09:22→20:36)
[2022-06-25] MEDS: Sodium Chloride 0.9% 1,000 ML IV SCH ×2 (09:23→20:33)
[2022-06-25 11:03] LABS: Hemoglobin 10.7 g/dL (14.0-18.0); Mean Corpuscular HGB CONC 32.3 g/dL (32.0-36.0); Mean Corpuscular Hemoglobin 35.6 pg (27.0-31.0); Mean Platelet Volume 9.7 fL (7.4-10.4); Platelet Count 167 10x3/uL (130-400); RBC Distribution Width 12.3 % (11.5-14.5); Red Blood Cell (RBC) Count 3.02 mill/uL (4.70-6.10); White Blood Cell (WBC) Count 6.8 10x3/uL (4.8-10.8)
[2022-06-25 11:26] LABS: Anion Gap 14 mmol/L (10-20); BUN (Urea Nitrogen) 26 mg/dL (8.4-25.7); Calc. Creatinine Clearance 69 mL/min (70-130); Calcium 7.8 mg/dL (7.8-10.44); Carbon Dioxide 16 mmol/L (23-31); Chloride 111 mmol/L (98-107); Estimated GFR 86; Glucose 112 mg/dL (83-110); Potassium 4.4 mmol/L (3.5-5.1); Sodium 137 mmol/L (136-145)
[2022-06-25 12:23] LABS: Band 6 % (5-11); Lymphocytes 4 % (21-51); MDiff Complete? YES; Monocytes 4 % (0-10); Neutrophil 86 % (42-75); Ovalocytes SLIGHT = 2-5 cells (100X) (0-1/hpf); Platelet Morphology Comment Appears Adequate; Polychromasia SLIGHT = 2-3 cells (100X) (0-2/hpf); Vacuoles SLIGHT
[2022-06-25] MEDS: metroNIDAZOLE 500 MG TAB PO SCH ×2 (15:09→20:31)
[2022-06-25] MEDS: Azithromycin 250 MG TAB PO SCH (16:19)
[2022-06-25] MEDS: cefTRIAXone\\ROCEPHIN 1 GM in Sodium Chloride 0.9% 100 ML IVPB SCH (17:27)
[2022-06-25] MEDS: Atorvastatin Calcium 10 MG TAB PO SCH (20:30)
[2022-06-25] MEDS: Scopolamine 1.5 mg/72 hour Patch TD SCH (20:31)
[2022-06-25] MEDS: QUEtiapine 25 MG TAB PO SCH (20:31)
[2022-06-26] MEDS ORDERED: Sterile Water 10 ML VIAL FS PRN (03:15)
[2022-06-26] MEDS ORDERED: OLANZapine 10 MG VIAL IM SCH (03:15)
[2022-06-26 06:24] LABS: Hemoglobin 11.7 g/dL (14.0-18.0); Mean Corpuscular HGB CONC 32.2 g/dL (32.0-36.0); Mean Corpuscular Hemoglobin 35.1 pg (27.0-31.0); Mean Platelet Volume 8.8 fL (7.4-10.4); Platelet Count 205 10x3/uL (130-400); RBC Distribution Width 12.2 % (11.5-14.5); Red Blood Cell (RBC) Count 3.34 mill/uL (4.70-6.10); White Blood Cell (WBC) Count 9.1 10x3/uL (4.8-10.8)
[2022-06-26] MEDS: metroNIDAZOLE 500 MG TAB PO SCH ×3 (06:31→20:17)
[2022-06-26 06:43] LABS: Anion Gap 13 mmol/L (10-20); BUN (Urea Nitrogen) 25 mg/dL (8.4-25.7); Calc. Creatinine Clearance 68 mL/min (70-130); Calcium 7.9 mg/dL (7.8-10.44); Carbon Dioxide 18 mmol/L (23-31); Chloride 111 mmol/L (98-107); Estimated GFR 85; Glucose 138 mg/dL (83-110); Potassium 3.8 mmol/L (3.5-5.1); Sodium 138 mmol/L (136-145)
[2022-06-26 07:54] LABS: Band 2 % (5-11); Burr Cells MODERATE= 6-15 cells (100X) (0-1/hpf); Lymphocytes 7 % (21-51); MDiff Complete? YES; Macrocytosis SLIGHT = 6-15 cells (100X) (0-5/hpf); Metamyelocyte 2 % (0-0); Monocytes 6 % (0-10); Neutrophil 83 % (42-75); Nucleated RBC 1 % (0); Platelet Morphology Comment Appears Adequate; Polychromasia SLIGHT = 2-3 cells (100X) (0-2/hpf)
[2022-06-26] MEDS: REMDESIVIR 100 MG in Sodium Chloride 0.9% 250 ML 230 ML IV SCH (09:23)
[2022-06-26] MEDS: Diclofenac 1% 100 GM GEL TP SCH ×4 (09:24→20:18)
[2022-06-26] MEDS: Dexamethasone 4 mg/ml Vial SLOW IVP SCH (09:24)
[2022-06-26] MEDS: Multivit, Therapeutic 1 TAB PO SCH (10:16)
[2022-06-26] MEDS: Cholecalciferol 1,000 UNITS (25 MCG) TAB PO SCH (10:16)
[2022-06-26] MEDS: QUEtiapine 25 MG TAB PO SCH ×2 (10:16→20:17)
[2022-06-26] MEDS: Fludrocortisone Acetate 0.1 MG TAB PO SCH (10:16)
[2022-06-26] MEDS: Sodium Chloride 0.9% 1,000 ML IV SCH (14:54)
[2022-06-26] MEDS: cefTRIAXone\\ROCEPHIN 1 GM in Sodium Chloride 0.9% 100 ML IVPB SCH (17:27)
[2022-06-26] MEDS: Azithromycin 250 MG TAB PO SCH (17:28)
[2022-06-26] MEDS: Atorvastatin Calcium 10 MG TAB PO SCH (20:17)
[2022-06-27] MEDS: Sodium Chloride 0.9% 1,000 ML IV SCH ×2 (05:41→15:23)
[2022-06-27] MEDS: metroNIDAZOLE 500 MG TAB PO SCH ×3 (05:41→21:32)
[2022-06-27 08:11] LABS: Hemoglobin 11.1 g/dL (14.0-18.0); Mean Corpuscular HGB CONC 31.9 g/dL (32.0-36.0); Mean Corpuscular Hemoglobin 34.4 pg (27.0-31.0); Mean Platelet Volume 8.6 fL (7.4-10.4); Platelet Count 217 10x3/uL (130-400); RBC Distribution Width 12.3 % (11.5-14.5); Red Blood Cell (RBC) Count 3.22 mill/uL (4.70-6.10); White Blood Cell (WBC) Count 7.2 10x3/uL (4.8-10.8)
[2022-06-27 08:32] LABS: Anion Gap 10 mmol/L (10-20); BUN (Urea Nitrogen) 24 mg/dL (8.4-25.7); Calc. Creatinine Clearance 74 mL/min (70-130); Calcium 7.4 mg/dL (7.8-10.44); Carbon Dioxide 20 mmol/L (23-31); Chloride 112 mmol/L (98-107); Estimated GFR 88; Glucose 138 mg/dL (83-110); Potassium 3.5 mmol/L (3.5-5.1); Sodium 138 mmol/L (136-145)
[2022-06-27 08:58] LABS: Burr Cells MODERATE= 6-15 cells (100X) (0-1/hpf); Lymphocytes 8 % (21-51); MDiff Complete? YES; Macrocytosis SLIGHT = 6-15 cells (100X) (0-5/hpf); Monocytes 11 % (0-10); Myelocyte 5 % (0-0); Neutrophil 75 % (42-75); Ovalocytes SLIGHT = 2-5 cells (100X) (0-1/hpf); Platelet Morphology Comment Appears Adequate; Polychromasia SLIGHT = 2-3 cells (100X) (0-2/hpf); Reactive Lymphocytes 1 % (0-10)
[2022-06-27] MEDS: Cholecalciferol 1,000 UNITS (25 MCG) TAB PO SCH (09:09)
[2022-06-27] MEDS: Fludrocortisone Acetate 0.1 MG TAB PO SCH (09:10)
[2022-06-27] MEDS: Multivit, Therapeutic 1 TAB PO SCH (09:10)
[2022-06-27] MEDS: Dexamethasone 4 mg/ml Vial SLOW IVP SCH (09:10)
[2022-06-27] MEDS: QUEtiapine 25 MG TAB PO SCH ×2 (09:11→21:32)
[2022-06-27] MEDS: Diclofenac 1% 100 GM GEL TP SCH ×4 (09:17→21:30)
[2022-06-27] MEDS: cefTRIAXone\\ROCEPHIN 1 GM in Sodium Chloride 0.9% 100 ML IVPB SCH (19:31)
[2022-06-27] MEDS: Atorvastatin Calcium 10 MG TAB PO SCH (21:32)
[2022-06-27] MEDS: Azithromycin 250 MG TAB PO SCH (21:32)
[2022-06-28] MEDS: metroNIDAZOLE 500 MG TAB PO SCH ×2 (05:11→14:32)
[2022-06-28] MEDS: Sodium Chloride 0.9% 1,000 ML IV SCH ×2 (05:11→21:36)
[2022-06-28] MEDS: Cholecalciferol 1,000 UNITS (25 MCG) TAB PO SCH (10:04)
[2022-06-28] MEDS: Dexamethasone 4 mg/ml Vial SLOW IVP SCH (10:05)
[2022-06-28] MEDS: QUEtiapine 25 MG TAB PO SCH (10:05)
[2022-06-28] MEDS: Fludrocortisone Acetate 0.1 MG TAB PO SCH (10:05)
[2022-06-28] MEDS: Multivit, Therapeutic 1 TAB PO SCH (10:07)
[2022-06-28] MEDS: Diclofenac 1% 100 GM GEL TP SCH ×3 (10:10→21:36)
[2022-06-28 16:54] VITALS: BP 144/82; TEMP 97.6
[2022-06-28] MEDS ORDERED: QUEtiapine 25 MG TAB PO SCH (21:00)
[2022-06-28] MEDS: cefTRIAXone\\ROCEPHIN 1 GM in Sodium Chloride 0.9% 100 ML IVPB SCH (21:36)
[2022-06-28] MEDS: Azithromycin 250 MG TAB PO SCH (21:36)
== END 2022-06-28 19:20 | disposition home or self-care (01) | DRG 177 ==
LOC: ERS 15:27 → 2NO 17:48 → T4-A 06-23 14:11
PROVIDERS: ADMIT Student in an Organized Health Care Education/Training Program; ATTEND Internal Medicine
PROC: 8E0ZXY6 Isolation (ICD-10-PCS; principal; 2022-06-22)
PROC: XW033E5 Introduction of Remdesivir Anti-infective into Peripheral Vein, Percutaneous Approach, New Technology Group 5 (ICD-10-PCS; 2022-06-22)
DX: U07.1 COVID-19 (principal); J12.82 Pneumonia due to coronavirus disease 2019; J96.01 Acute respiratory failure with hypoxia; S22.42XA Multiple fractures of ribs, left side, initial encounter for closed fracture; S32.021A Stable burst fracture of second lumbar vertebra, initial encounter for closed fracture; E87.1 Hypo-osmolality and hyponatremia; I10 Essential (primary) hypertension; N40.0 Benign prostatic hyperplasia without lower urinary tract symptoms; W19.XXXA Unspecified fall, initial encounter; Z79.899 Other long term (current) drug therapy
CPT/HCPCS: 36415; 36416; 70450; 71045; 71250; 72125; 74177; 74230; 80048; 82805; 83605; 83735; 84145; 85025; 87040; 87070; 87205; 93005; 94760; 96365; 96368; 96375; J0248; J0456; J0696; J1100; J3490; J7050

== ENCOUNTER 2022-07-18 16:12 | Inpatient (IN) | payer MEDICARE, BC ==
[2022-07-18] MEDS ORDERED: Labetalol HCl 100 MG/20 ML VIAL SLOW IVP PRN (19:31)
[2022-07-18] MEDS ORDERED: hydrALAZINE 20 MG/ML VIAL SLOW IVP PRN (19:31)
[2022-07-18] MEDS ORDERED: niCARdipine 25 MG in Sodium Chloride 0.9% 250 ML 250 ML IVPB PRN (19:31)
[2022-07-18] MEDS ORDERED: Dextrose 50% Abboject 50 ML SYRINGE SLOW IVP PRN (19:38)
[2022-07-18] MEDS ORDERED: Dextrose 5% in Water 1,000 ML IV PRN (19:38)
[2022-07-18] MEDS ORDERED: Electrolyte Replacement Protocol 1 EACH FS SCH (19:53)
[2022-07-18] MEDS ORDERED: Acetaminophen 325 MG TAB PO PRN (19:54)
[2022-07-18] MEDS ORDERED: Bisacodyl 5 MG TAB PO PRN (19:54)
[2022-07-18] MEDS ORDERED: Ondansetron PF 4 MG/2 ML Vial IVP PRN (19:54)
[2022-07-18] MEDS ORDERED: Ondansetron ODT 4 MG TAB PO PRN (19:54)
[2022-07-18] MEDS ORDERED: Senokot S 8.6-50 MG TAB PO PRN (19:54)
[2022-07-18] MEDS ORDERED: Acetaminophen 650 MG Suppository PR PRN (19:54)
[2022-07-18] MEDS ORDERED: levETIRAcetam in NS 1,000 MG in Premix Bag 1 BAG IVPB SCH (20:00)
[2022-07-18 20:08] VITALS: BMI 23.5
[2022-07-18] MEDS ORDERED: levETIRAcetam 500 MG/5 ML VIAL SLOW IVP SCH (20:15)
[2022-07-18] MEDS: Sodium Chloride 0.9% 1,000 ML IV SCH (20:35)
[2022-07-18] MEDS: Famotidine/PF 20 mg/2ml Vial SLOW IVP SCH (20:35)
[2022-07-18] MEDS: Famotidine 20 MG TAB PO SCH (20:36)
[2022-07-18] MEDS: Atorvastatin Calcium 40 MG TAB PO SCH (20:36)
[2022-07-19 04:01] LABS: Hemoglobin 8.8 g/dL (14.0-18.0); Mean Corpuscular HGB CONC 34.7 g/dL (32.0-36.0); Mean Corpuscular Hemoglobin 37.3 pg (27.0-31.0); Mean Platelet Volume 7.7 fL (7.4-10.4); Platelet Count 193 10x3/uL (130-400); Red Blood Cell (RBC) Count 2.36 mill/uL (4.70-6.10); White Blood Cell (WBC) Count 3.7 10x3/uL (4.8-10.8)
[2022-07-19 04:14] LABS: INR-International Normal Ratio 1.2; PTT 27.4 sec (22.9-36.1); Prothrombin Time 15.6 sec (12.0-14.7)
[2022-07-19 04:21] LABS: ALT (SGPT) 18 U/L (8-55); AST (SGOT) 39 U/L (5-34); Alkaline Phosphatase 64 U/L (40-110); Anion Gap 12 mmol/L (10-20); BUN (Urea Nitrogen) 10 mg/dL (8.4-25.7); Bilirubin, Total 0.8 mg/dL (0.2-1.2); Calc. Creatinine Clearance 76 mL/min (70-130); Calcium 7.2 mg/dL (7.8-10.44); Carbon Dioxide 20 mmol/L (23-31); Chloride 108 mmol/L (98-107); Estimated GFR 92; Globulin 2.5 g/dL (2.4-3.5); Glucose 100 mg/dL (83-110); Potassium 3.3 mmol/L (3.5-5.1); Protein, Total 5.5 g/dL (5.8-8.1); Sodium 137 mmol/L (136-145)
[2022-07-19 04:30] LABS: Crenated RBC SLIGHT = 1-5 cells (100X) (None Seen); Large Platelets SLIGHT; Lymphocytes 13 % (21-51); MDiff Complete? YES; Macrocytosis SLIGHT = 6-15 cells (100X) (0-5/hpf); Monocytes 10 % (0-10); Neutrophil 77 % (42-75); Platelet Morphology Comment Appears Adequate; Polychromasia SLIGHT = 2-3 cells (100X) (0-2/hpf)
[2022-07-19] MEDS: Sodium Chloride 0.9% 1,000 ML IV SCH ×2 (07:18→20:29)
[2022-07-19] MEDS: Famotidine/PF 20 mg/2ml Vial SLOW IVP SCH ×2 (07:18→20:34)
[2022-07-19] MEDS: Famotidine 20 MG TAB PO SCH ×2 (07:18→20:35)
[2022-07-19] MEDS: levETIRAcetam 500 MG/5 ML VIAL SLOW IVP SCH ×2 (07:18→20:33)
[2022-07-19] MEDS ORDERED: levETIRAcetam in NS 500 MG in Premix Bag 1 BAG IVPB SCH (09:00)
[2022-07-19] MEDS ORDERED: Electrolyte Replacement Protocol FS PRN (09:30)
[2022-07-19] MEDS ORDERED: Magnesium 2 GM/50 ML(in water) 2 GM in Premix Bag 1 BAG IVPB SCH (09:45)
[2022-07-19] MEDS: Potassium Chloride 20 MEQ in Premix Bag 1 BAG IVPB SCH ×2 (09:56→10:07)
[2022-07-19 17:02] LABS: Potassium 3.9 mmol/L (3.5-5.1)
[2022-07-19] MEDS: Atorvastatin Calcium 40 MG TAB PO SCH (20:35)
[2022-07-20] MEDS: levETIRAcetam 500 MG/5 ML VIAL SLOW IVP SCH ×2 (07:40→20:40)
[2022-07-20] MEDS: Famotidine/PF 20 mg/2ml Vial SLOW IVP SCH ×2 (07:40→20:40)
[2022-07-20] MEDS: Famotidine 20 MG TAB PO SCH ×2 (08:04→20:27)
[2022-07-20] MEDS: Atorvastatin Calcium 40 MG TAB PO SCH (20:27)
[2022-07-21] MEDS: Lorazepam 2 MG/ML VIAL SLOW IVP PRN ×2 (16:57→23:17)
[2022-07-21] MEDS: Atorvastatin Calcium 40 MG TAB PO SCH (21:00)
[2022-07-22] MEDS: Lorazepam 2 MG/ML VIAL SLOW IVP PRN ×2 (09:28→15:00)
[2022-07-22] MEDS: Morphine 2 MG/ML VIAL SLOW IVP PRN (11:45)
[2022-07-22] MEDS: Atorvastatin Calcium 40 MG TAB PO SCH (19:04)
[2022-07-23] MEDS: Morphine 2 MG/ML VIAL SLOW IVP PRN ×4 (00:13→18:02)
[2022-07-23] MEDS: Atorvastatin Calcium 40 MG TAB PO SCH (20:04)
[2022-07-24] MEDS: Lorazepam 2 MG/ML VIAL SLOW IVP PRN ×2 (12:49→18:35)
[2022-07-25] MEDS: Lorazepam 2 MG/ML VIAL SLOW IVP PRN (16:14)
[2022-07-25] MEDS: Morphine 2 MG/ML VIAL SLOW IVP PRN (23:25)
[2022-07-26] MEDS: Morphine 2 MG/ML VIAL SLOW IVP PRN (03:34)
[2022-07-26 08:43] VITALS: BP 73/53; TEMP 98.4
== END 2022-07-26 12:05 | DRG 64 ==
LOC: CCU 19:13 → MSONC 07-19 15:43
PROVIDERS: ADMIT Internal Medicine; ATTEND Family Medicine
DX: I63.9 Cerebral infarction, unspecified (principal); I60.9 Nontraumatic subarachnoid hemorrhage, unspecified; G93.49 Other encephalopathy; Z66 Do not resuscitate; Z51.5 Encounter for palliative care; E78.5 Hyperlipidemia, unspecified; I10 Essential (primary) hypertension; N40.0 Benign prostatic hyperplasia without lower urinary tract symptoms; E03.9 Hypothyroidism, unspecified; D64.9 Anemia, unspecified; D72.819 Decreased white blood cell count, unspecified; F03.A0 Unspecified dementia, mild, without behavioral disturbance, psychotic disturbance, mood disturbance, and anxiety; R47.01 Aphasia; Z98.890 Other specified postprocedural states; Z92.82 Status post administration of tPA (rtPA) in a different facility within the last 24 hours prior to admission to current facility; Z85.46 Personal history of malignant neoplasm of prostate
CPT/HCPCS: 36415; 36416; 70450; 80053; 85025; 85610; 85730; J0360; J1953; J2060; J2272; J3475; J3480; J7050; S0028